=== PATIENT | male | born 1965 | race Caucasian/White ===

== ENCOUNTER 2020-07-27 06:34 | Emergency (ER) | payer OTHER, SELFPAY ==
[2020-07-27 06:37] VITALS: TEMP 36.6; BMI 33.4
--- NOTE | 2020-07-27 07:20 | ED.GENADULT ---
HPI - General Adult General Chief complaint: General Medical Stated complaint: Covid symptoms Time Seen by Provider: 07/27/20 07:20 Source: patient Mode of arrival: ambulatory Limitations: no limitations History of Present Illness HPI narrative: body aches and chills/hot flashes for 1 day MD complaint: body aches/chills Onset (ago): day(s) (1) Severity: mild Quality: aching Relieving factors: none Exacerbating factors: none Associated symptoms: fever/chills Treatments prior to arrival: none Related Data Allergies Allergy/AdvReac Type Severity Reaction Status Date / Time No Known Allergies Allergy Verified 07/27/20 06:45 Review of Systems Review of Systems: Constitutional : no Fever, positive Chills, positive fatigue, positive Malaise ENT/Mouth :no sore throat, no runny nose Eyes: No Discharge Cardiovascular : No Chest Pain, No SOB Respiratory : No Cough, No Sputum Gastrointestinal : No Nausea, No Vomiting, No Diarrhea Genitourinary : No Dysuria, No Urinary Frequency Musculoskeletal : positive Myalgia Skin : No rash Neuro : No Headache PMFSH Past Medical History Attestation statement: The following information was validated with the patient. Medical History No active medical problems Social History Social History (Updated 07/27/20 @ 07:21 by Domenica Arce DO) Smoking Status: Current every day smoker Use of substances other than those prescribed or required for medical reasons: No Advance Directives: No Advance Directives Information Provided: No Physical Exam Vital Signs: Vital Signs: Last Vital Signs Temp 97.9 F 07/27/20 06:37 Body Mass Index 33.4 Appearance: Alert. Oriented X3. No acute distress. Eyes: Pupils equal, round and reactive to light. ENT: Pharynx normal. Neck: Normal inspection. Neck supple. CVS: Normal heart rate and rhythm. Pulses normal. Respiratory: No respiratory distress. Breath sounds normal. Abdomen: Soft and nontender. Skin: Skin warm and dry. Normal skin color. Normal skin turgor. Extremities: No lower extremity edema. No calf ttp Neuro: Oriented X 3. No motor deficit. No sensory deficit. Medical Decision Making MDM Narrative Medical decision making narrative: 55 yo male otherwise healthy here with chills and body aches x 1 day, no hypoxia, not toxic, will COVID test and send home with precautions Discharge Plan Discharge Clinical Impression: Acute viral syndrome Patient Disposition: Home, Self-Care Instructions: COVID-19 (Coronavirus Disease 2019) (ED), Viral Syndrome (ED) Additional Instructions: return to ED for any worsening symptoms or concerns you were tested for COVID we will call you with results in 2 to 4 days, wear a mask, socially distance Referrals: Physician,Unknown [Primary Care Provider] - 2 days (as needed) Stand Alone Forms: Work/School Release
[2020-07-27 07:22] VITALS: BP 145/91; PULSE 74; TEMP 36.7; O2SAT 98
== END 2020-07-27 07:43 | disposition home or self-care (01) ==
PROVIDERS: Emergency Provider Emergency Medicine
DX: B34.9 Viral infection, unspecified (principal); Z20.828 Contact with and (suspected) exposure to other viral communicable diseases; F17.200 Nicotine dependence, unspecified, uncomplicated
CPT/HCPCS: 99283; U0003

== ENCOUNTER 2020-08-24 06:49 | Outpatient (REF) | payer OTHER, SELFPAY | END 2020-08-24 06:50 | disposition home or self-care (01) | LOC: HO.LAB 06:49 | PROVIDERS: Visit Provider Internal Medicine | DX: Z20.828 Contact with and (suspected) exposure to other viral communicable diseases (principal) | CPT/HCPCS: C9803; U0003 ==

== ENCOUNTER 2020-08-30 13:05 | Outpatient (REF) | payer OTHER, SELFPAY | END 2020-08-30 13:06 | disposition home or self-care (01) | LOC: HO.LAB 13:05 | PROVIDERS: Visit Provider Internal Medicine | DX: Z20.822 Contact with and (suspected) exposure to COVID-19 (principal) | CPT/HCPCS: 36415; C9803; U0003 ==

== ENCOUNTER 2023-03-13 06:15 | Emergency (ER) | payer MEDICAID, SELFPAY ==
--- NOTE | ~2023-03-13 | XR_ITS ---
EXAMINATION: XR SHOULDER, LEFT CLINICAL INFORMATION: Pain COMPARISON: None available. TECHNIQUE: Three views of the left shoulder. FINDINGS: Glenohumeral alignment is anatomic. No acute fracture is seen. The acromioclavicular joint is intact with mild to moderate degenerative change. XR/XR shoulder LT min 2V IMPRESSION: No acute findings. Degenerative change of the acromioclavicular joint.
[2023-03-13 06:21] VITALS: BP 180/114; PULSE 81; RESP 16; TEMP 36.9; O2SAT 98; BMI 31.3
--- NOTE | 2023-03-13 11:00 | ED_ITS ---
HPI - Extremity Problem General Chief complaint: Extremity Injury, Upper Stated complaint: unable to move left arm Time Seen by Provider: 03/13/23 08:19 Source: patient and family Mode of arrival: ambulatory Limitations: no limitations History of Present Illness HPI Narrative: 57-year-old male presents with 2 days of severe left shoulder pain. There is no trauma, falls, heavy lifting, twisting. Pain is. He is unable to sleep. He cannot move his arm secondary to pain. There has been no swelling. The pain does not radiate. Worse with movement and palpation. Prior treatment included ibuprofen. Related Data Previous Rx's Medication Instructions Recorded meloxicam 15 mg tablet 15 mg PO DAILY #14 tabs 03/13/23 methocarbamol 750 mg tablet 750 mg PO Q8H PRN muscle spasm #10 03/13/23 tabs Allergies Allergy/AdvReac Type Severity Reaction Status Date / Time No Known Allergies Allergy Verified 03/13/23 06:23 Review of Systems Review of Systems: CONSTITUTIONAL: Denies weight loss, fever and chills. HEENT: Denies changes in vision and hearing. RESPIRATORY: Denies SOB and cough. CV: Denies palpitations no CP. GI: Denies abdominal pain, nausea, vomiting and diarrhea. : Denies dysuria and urinary frequency. MSK: + myalgia and joint pain. SKIN: Denies rash and pruritus. NEUROLOGICAL: Denies headache and syncope. PSYCHIATRIC: Denies recent changes in mood. Denies anxiety and depression. All other ROS are negative unless in HPI PMFSH Past Medical History Medical History No active medical problems Social History Social History Advance Directives: No Advance Directives Information Provided: Yes Physical Exam Vital Signs: Vital Signs: Last Vital Signs Temp 98.4 F 03/13/23 06:21 Pulse 81 03/13/23 06:21 Resp 16 03/13/23 06:21 BP 180/114 H 03/13/23 06:21 Pulse Ox 98 03/13/23 06:21 O2 Del Method Room Air 03/13/23 06:21 BMI result Body Mass Index 31.3 GEN: Well developed, no acute distress, alert, oriented HEENT: Normocephalic, atraumatic, normal external ears, nose appears normal, no oropharyngeal edema or exudates Eyes: Normal to appearance Neck: Supple, no lymphadenopathy Respiratory: Talks in complete sentences, no respiratory distress, clear to a uscultation bilaterally Cardiovascular: Regular rate and rhythm, no murmurs rubs or gallops Abdomen: Soft, nontender, nondistended, no guarding, no rebound Back: No CVA tenderness Extremities: No clubbing cyanosis or edema, tenderness throughout the entire left shoulder area, no specific point tenderness, no swelling, neurovascularly intact, limited range of motion secondary to pain, no deformity Neurologic: No focal neurologic deficits, cranial nerves 2-12 intact, strength is 5/5 bilaterally Skin: No rash Course Course Course Narrative: X-ray shows no acute abnormalities. I suspect patient has muscle spasm, strain, strain of the left shoulder. He has no point tenderness over the bicipital groove to suggest biceps tendon eyes, nose subacromial point tenderness to suggest just bursitis. He is neurovascular intact. Will start patient on anti- inflammatory pain medications, provide patient with a sling for comfort. We discussed [id number] exercises and follow-up. Medical Decision Making Medical Decision Making MDM Narrative: 57-year-old male presents with left shoulder pain. This is nontraumatic. Examination reveals limited range of motion secondary to pain but otherwise he has tenderness generally throughout the entire shoulder area. Differential diagnosis includes bursitis, strain, sprain, rotator cuff injury, spasm, tendinitis Plan obtain x-rays Differential Diagnosis Differential Diagnoses: The differential diagnosis associated with the presentation includes (See above) Independent Interpretation I performed an independent interpretation of an: Plain X-Ray (Left shoulder no acute abnormalities) Radiology Impression Discussion of test interpretation with radiology: I have reviewed the radiologist's reading. Prescription Management I considered prescription management with: Pain Medication Discharge Plan Discharge Clinical Impression: Acute pain of left shoulder Patient Disposition: Home, Self-Care Instructions: Heat Pack Application (ED), Shoulder Pain (ED) Additional Instructions: Make sure to do [id number] exercises. These were demonstrated to during her evaluation. For pain: Meloxicam 15 mg every day for 14 days Tylenol 1000 mg every 6 hours as needed for additional pain relief Methocarbamol 750 mg every 8 hours as needed for muscle spasm. This may cause drowsiness. Topical capsaicin cream every 6 hours as needed Prescriptions: New meloxicam 15 mg tablet 15 mg PO DAILY Qty: 14 0RF methocarbamol 750 mg tablet 750 mg PO Q8H PRN (Reason: muscle spasm) Qty: 10 0RF Stand Alone Forms: Work/School Release Interventions: ED Discharge Assessment Last Done: 03/13/23 09:38 Discharge Date/Time: 03/13/23 09:39
== END 2023-03-13 09:39 | disposition home or self-care (01) ==
PROVIDERS: Emergency Provider Emergency Medicine
DX: M25.512 Pain in left shoulder (principal)
CPT/HCPCS: 73030; 99282; 99283; 99284

== ENCOUNTER 2023-07-30 02:29 | Emergency (ER) | payer SELFPAY ==
[2023-07-30 02:45] VITALS: BP 141/88; PULSE 83; RESP 16; TEMP 36.5; O2SAT 96; BMI 33.9
[2023-07-30 03:49] LABS: Influenza A PCR NEGATIVE (Negative); Influenza B PCR NEGATIVE (Negative); Resp Syncy Virus RNA Qual PCR NEGATIVE (Negative); SARS COV2 PCR INHOUSE NEGATIVE (Negative)
--- NOTE | 2023-07-30 06:26 | PC.NURSE ---
spoke with pt and approx 0555 as pt stated he did not want to wait to be seen. pt was in agreement to stay as AM docs arriving soon. 0625 pt decided he wanted to leave. pt on arrival had denied cough/sinus congestion. pt reports cc ESPINOZA wanted to be tested for covid/flu as he had exposure. resp even and unlabored speaking full clear sentences with this RN prior to leaving. ambulatory with steady gait. left with . states will go to urgent care/pcp to be seen later this AM.
== END 2023-07-30 06:37 | disposition left against medical advice (07) ==
PROVIDERS: Emergency Provider Emergency Medicine
DX: R05.9 Cough, unspecified (principal); M79.10 Myalgia, unspecified site; Z20.822 Contact with and (suspected) exposure to COVID-19; Z20.828 Contact with and (suspected) exposure to other viral communicable diseases
CPT/HCPCS: 0241U; 99281; 99283

== ENCOUNTER 2023-09-05 12:19 | Emergency (ER) | payer SELFPAY ==
[2023-09-05 12:34] VITALS: BP 147/97; PULSE 70; RESP 18; TEMP 36.7; O2SAT 97; BMI 34.2
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
[2023-09-05] MEDS: Lidocaine HCl 1 % MPF 5 ML VIAL INFILTRATI (12:45)
== END 2023-09-05 13:10 | disposition home or self-care (01) ==
LOC: HO.ED 13:00
PROVIDERS: Emergency Provider Emergency Medicine
DX: S61.216A Laceration without foreign body of right little finger without damage to nail, initial encounter (principal); W23.0XXA Caught, crushed, jammed, or pinched between moving objects, initial encounter; Y93.E9 Activity, other interior property and clothing maintenance; Y92.008 Other place in unspecified non-institutional (private) residence as the place of occurrence of the external cause; Y99.9 Unspecified external cause status
CPT/HCPCS: 12001; 99281; 99284

== ENCOUNTER 2024-07-17 05:17 | Emergency (ER) | payer SELFPAY ==
--- NOTE | ~2024-07-17 | XR_ITS ---
EXAMINATION: XR SHOULDER, RIGHT CLINICAL INFORMATION: Right shoulder pain. Unknown injury. COMPARISON: None available. TECHNIQUE: AP external rotation, Grashey, scapular Y views of the right shoulder. FINDINGS: Acromioclavicular and glenohumeral joint alignments are maintained. Mild degenerative changes are noted at the acromioclavicular articulation. No significant degenerative changes are noted at the glenohumeral articulation. There is no evidence of acute fracture or dislocation. Normal osseous mineralization. No soft tissue calcifications. Visualized thorax is unremarkable. XR/XR shoulder RT min 2V IMPRESSION: No evidence of acute fracture or dislocation in the right shoulder. Mild degenerative changes at the right acromioclavicular joint. Electronically signed by: Dhiraj Ramirez MD 07/17/2024 07:02 AM WENDY VILLEGAS
[2024-07-17 05:23] VITALS: BP 143/83; PULSE 76; RESP 18; TEMP 37; O2SAT 99; BMI 32.4
--- NOTE | 2024-07-17 07:06 | ED_ITS ---
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 He has no numbness or weakness woke up like this. This has never happened before. He has tried ASA without little relief. Hurts to lift and move MD Complaint: joint pain Onset (ago): day(s) (Sunday) Pain Consistency: constant Location: right and upper extremity Quality: aching Radiation: none Relieving factors: immobilization Exacerbating factors: range of motion and palpation Associated symptoms: denies other symptoms Related Data Previous Rx's ?Medication ?Instructions ?Recorded meloxicam 15 mg tablet 15 mg PO DAILY #14 tabs 03/13/23 methocarbamol 750 mg tablet 750 mg PO Q8H PRN muscle spasm #10 03/13/23 tabs cyclobenzaprine 10 mg tablet 10 mg PO TID PRN muscle spasm #20 07/17/24 tabs lidocaine 5 % topical patch 1 patch topical DAILY #30 ea 07/17/24 prednisone 20 mg tablet 40 mg (2 x 20 mg) PO DAILY 5 days 07/17/24 #10 tabs Allergies Allergy/AdvReac Type Severity Reaction Status Date / Time No Known Allergies Allergy Verified 07/17/24 05:32 Review of Systems Review of Systems: Constitutional : No Fever, No Chills ENT/Mouth : No Ear Pain, No Hoarseness, No sore throat Eyes: No Eye Pain, No Swelling, No Redness, No Foreign Body Cardiovascular : No Chest Pain, No SOB Respiratory : No Cough, No Dyspnea Gastrointestinal : No Nausea, No Vomiting, No Diarrhea, No abdominal Pain Genitourinary : No Dysuria, No Hematuria Musculoskeletal : positive joint pain, No Myalgias, No Joint Swelling Skin : No Skin lacerations, No rash Neuro : No Weakness, No Numbness, No Loss of Consciousness, No Dizziness, No Headache All other systems reviewed and are negative PMFSH Past Medical History Attestation statement: The following information was validated with the patient. Source: old records reviewed Medical History No active medical problems Social History Social History Smoked in Last 30 Days: Yes Use of substances other than those prescribed or required for medical reasons: No Advance Directives: No Advance Directives Information Provided: No Physical Exam Vital Signs: Vital Signs: Last Vital Signs Temp 98.6 F 07/17/24 05:23 Pulse 76 07/17/24 05:23 Resp 18 07/17/24 05:23 BP 143/83 H 07/17/24 05:23 Pulse Ox 99 07/17/24 05:23 O2 Del Method Room Air 07/17/24 05:23 BMI result Body Mass Index 32.4 Appearance: Alert. Oriented X3. No acute distress. Eyes: Pupils equal, round and reactive to light. ENT: Pharynx normal. Neck: Normal inspection. Neck supple. CVS: Normal heart rate and rhythm. Pulses normal. Respiratory: No respiratory distress. Breath sounds normal. Abdomen: Soft and nontender. Skin: Skin warm and dry. Normal skin color. Normal skin turgor. Extremities: No lower extremity edema. R shoulder AC ttp also R posterior shoulder ttp no swelling, rash, distal NV intact, has issues raising arm Neuro: Oriented X 3. No motor deficit. No sensory deficit. Medical Decision Making Medical Decision Making MDM Narrative: 59 yo male no PMH here with c/o atraumatic R shoulder pain he is R shoulder dom has pain with ROM testing and rotator cuff he is distal NV intact there is no signs of infection or swelling. Will start on steroid, pain control and refer to PT and orthopedics. Instructed to move shoulder gently to prevent adhesive capsulitis Differential Diagnosis Differential Diagnoses: The differential diagnosis associated with the presentation includes tendonitis, strain Independent Interpretation I performed an independent interpretation of an: Plain X-Ray (no fracture) Radiology Impression Discussion of test interpretation with radiology: I have reviewed the radiologist's reading. Independent Historian Clinical information obtained from an independent historian. History obtained from or confirmed by: Spouse Prescription Management I considered prescription management with: Pain Medication and Other Discharge Plan Discharge Clinical Impression: Right shoulder strain, Right shoulder tendinitis Patient Disposition: Home, Self-Care Instructions: Muscle Strain (ED), Tendinitis (ED) Additional Instructions: xrays shows arthritis please follow up for physical therapy remember to rotate the shoulder avoid rash, weakness, numbness XR/XR shoulder RT min 2V IMPRESSION: No evidence of acute fracture or dislocation in the right shoulder. Mild degenerative changes at the right acromioclavicular joint Prescriptions: New cyclobenzaprine 10 mg tablet 10 mg PO TID PRN (Reason: muscle spasm) Qty: 20 0RF prednisone 20 mg tablet 40 mg PO DAILY 5 Days Qty: 10 0RF lidocaine 5 % adhesive patch,medicated 1 patch topical DAILY Qty: 30 0RF Rx Instructions: leave on most painful area for up to 12 hrs No Action meloxicam 15 mg tablet 15 mg PO DAILY Qty: 14 0RF methocarbamol 750 mg tablet 750 mg PO Q8H PRN (Reason: muscle spasm) Qty: 10 0RF Referrals: [facility] [place] [facility] [Provider Group] Stand Alone Forms: Work/School Release Print Language: Arabic
[2024-07-17 07:35] VITALS: BP 146/91; PULSE 62; RESP 16; TEMP 36.7; O2SAT 98
== END 2024-07-17 07:44 | disposition home or self-care (01) ==
PROVIDERS: Emergency Provider Emergency Medicine
DX: S46.911A Strain of unspecified muscle, fascia and tendon at shoulder and upper arm level, right arm, initial encounter (principal); M75.31 Calcific tendinitis of right shoulder; X58.XXXA Exposure to other specified factors, initial encounter; Y93.89 Activity, other specified; Y92.89 Other specified places as the place of occurrence of the external cause; Y99.8 Other external cause status
CPT/HCPCS: 73030; 99283; 99284